=== PATIENT | male | born 1970 | race Two or more races ===

== ENCOUNTER 2019-07-14 15:53 | Outpatient (CLI) | payer OTHER | END 2019-07-14 16:04 | disposition home or self-care (01) | LOC: RAD 15:53 | DX: I10 Essential (primary) hypertension (principal) ==

== ENCOUNTER → 2019-07-22 15:04 | Outpatient (CLI) | payer OTHER | END | disposition home or self-care (01) | LOC: LAB 15:04 | DX: D68.8 Other specified coagulation defects (principal) ==

== ENCOUNTER 2019-07-23 15:00 | Outpatient (CLI) | payer OTHER | END 2019-07-23 15:08 | disposition home or self-care (01) | LOC: LAB 15:00 | DX: N30.00 Acute cystitis without hematuria (principal) ==

== ENCOUNTER 2019-10-08 10:46 | Outpatient (CLI) | payer OTHER | END 2019-10-08 15:00 | disposition home or self-care (01) | LOC: LAB 10:46 | DX: N30.00 Acute cystitis without hematuria (principal) ==

== ENCOUNTER 2019-10-12 08:03 | Outpatient (CLI) | payer OTHER | END 2019-10-12 09:00 | disposition home or self-care (01) | LOC: RX STUDY 08:03 | DX: K57.90 Diverticulosis of intestine, part unspecified, without perforation or abscess without bleeding (principal) ==

== ENCOUNTER 2019-10-19 10:01 | Outpatient (CLI) | payer OTHER | END 2019-10-19 10:10 | disposition home or self-care (01) | LOC: LAB 10:01 | DX: N30.00 Acute cystitis without hematuria (principal) ==

== ENCOUNTER → 2019-11-11 10:27 | Outpatient (CLI) | payer OTHER | END | disposition home or self-care (01) | LOC: LAB 10:27 | DX: N30.00 Acute cystitis without hematuria (principal) ==

== ENCOUNTER → 2020-03-19 08:51 | Outpatient (CLI) | payer OTHER | END | disposition home or self-care (01) | LOC: LAB 08:51 | PROVIDERS: ATTEND Urology | DX: N30.00 Acute cystitis without hematuria (principal) ==

== ENCOUNTER 2021-03-14 07:51 | Outpatient (CLI) | payer OTHER | END 2021-03-14 07:54 | disposition home or self-care (01) | LOC: LAB 07:51 | PROVIDERS: ATTEND Urology | DX: R97.21 Rising PSA following treatment for malignant neoplasm of prostate (principal); N30.00 Acute cystitis without hematuria ==

== ENCOUNTER 2021-05-24 07:09 | Outpatient (CLI) | payer OTHER | END 2021-05-24 07:23 | disposition home or self-care (01) | LOC: TOM 07:09 | PROVIDERS: ATTEND Internal Medicine Gastroenterology | DX: K57.90 Diverticulosis of intestine, part unspecified, without perforation or abscess without bleeding (principal); K44.9 Diaphragmatic hernia without obstruction or gangrene; Q61.01 Congenital single renal cyst; K59.09 Other constipation; Z12.11 Encounter for screening for malignant neoplasm of colon; D12.7 Benign neoplasm of rectosigmoid junction; G20 Parkinson's disease ==

== ENCOUNTER 2021-05-29 15:41 | Outpatient (CLI) | payer OTHER | END 2021-05-29 15:52 | disposition home or self-care (01) | LOC: LAB 15:41 | PROVIDERS: ATTEND Urology | DX: R97.20 Elevated prostate specific antigen [PSA] (principal) ==

== ENCOUNTER → 2021-06-09 | Outpatient (CLI) | payer OTHER ==
[~2021-06-09] MED LIST: CARBIDOPA-LEVO1 EA10; CARBIDOPA-LEVO1 EA13; CEFUROXIME500 MG; LOSARTAN POTASS50 MG; NEUPRO1 EAC4; RASAGILINE MESYL1 MG; TAMSULOSIN HCL0.4 MG
== END | disposition home or self-care (01) ==
LOC: SONOGRAMA 07:25
PROVIDERS: ATTEND Urology
DX: D29.1 Benign neoplasm of prostate (principal); R97.20 Elevated prostate specific antigen [PSA]

== ENCOUNTER 2021-06-12 07:16 | Inpatient (IN) | payer OTHER ==
[~2021-06-12] VITALS: Ht 182.9 cm; Wt 72.6 kg
[2021-06-12] MEDS ORDERED: CARBIDOPA-LEVO1 EA13 (07:36)
[2021-06-12] MEDS ORDERED: RASAGILINE MESYL1 MG (07:37)
[2021-06-12] MEDS ORDERED: NEUPRO1 EAC4 (07:37)
[2021-06-12] MEDS ORDERED: CARBIDOPA-LEVO1 EA10 (07:37)
[2021-06-12] MEDS ORDERED: TAMSULOSIN HCL0.4 MG (07:38)
[2021-06-12] MEDS ORDERED: LOSARTAN POTASS50 MG (07:38)
[2021-06-12] MEDS ORDERED: CEFUROXIME500 MG (07:39)
== END 2021-06-15 13:22 | disposition home or self-care (01) | DRG 690 ==
LOC: ER 07:16 → SURH 14:54
PROVIDERS: ADMIT Urology; ATTEND Urology
DX: N39.0 Urinary tract infection, site not specified (principal); Z20.822 Contact with and (suspected) exposure to COVID-19

== ENCOUNTER → 2021-07-14 09:53 | Outpatient (CLI) | payer OTHER ==
[~2021-07-14 09:53] MED LIST changes: +[UNRECOGNIZED DRUG - OTHER] PO
== END | disposition home or self-care (01) ==
LOC: LAB 09:53
PROVIDERS: ATTEND Urology
DX: N30.00 Acute cystitis without hematuria (principal); I11.9 Hypertensive heart disease without heart failure

== ENCOUNTER 2021-07-24 10:45 | Inpatient (IN) | payer OTHER ==
[~2021-07-24 10:45] MED LIST changes: -[UNRECOGNIZED DRUG - OTHER] PO
[2021-07-24] MEDS ORDERED: [UNRECOGNIZED DRUG - OTHER] PO (13:59)
== END 2021-07-27 13:57 | disposition home or self-care (01) | DRG 714 ==
LOC: SURH 07-26 07:00 → O/R 07-26 11:20 → SURH 07-26 11:20
PROVIDERS: ADMIT Urology; ATTEND Urology
PROC: 0VT08ZZ Resection of Prostate, Via Natural or Artificial Opening Endoscopic (ICD-10-PCS; principal; 2021-07-26 07:00)
DX: N40.1 Benign prostatic hyperplasia with lower urinary tract symptoms (principal); R33.8 Other retention of urine

== ENCOUNTER 2021-08-05 08:15 | Outpatient (CLI) | payer OTHER ==
[~2021-08-05 08:15] MED LIST changes: +[UNRECOGNIZED DRUG - OTHER] PO
== END 2021-08-05 08:19 | disposition home or self-care (01) ==
LOC: LAB 08:15
PROVIDERS: ATTEND Urology
DX: N30.00 Acute cystitis without hematuria (principal)

== ENCOUNTER 2021-08-21 06:30 | Outpatient (CLI) | payer OTHER | END 2021-08-21 06:38 | disposition home or self-care (01) | LOC: LAB 06:30 | PROVIDERS: ATTEND Urology | DX: N30.00 Acute cystitis without hematuria (principal) ==

== ENCOUNTER 2021-08-23 12:35 | Inpatient (IN) | payer OTHER ==
[~2021-08-23] VITALS: Ht 182.9 cm; Wt 74.8 kg
--- NOTE | 2021-08-23 13:00 | NUR ---
SE RECIBE PACIENTE ALERTA Y ORIENTADO X3 EN AMBULANCIA QUIEN REFIERE QUE LA SEMANA PASADA LE OPERARON DE LA PROSTATA Y QUE DESDE EL LUNES COMENZO A BELKYS SANGRADO EN LA ORINA ACOMPANDADO DE COAGULOS, EN EL CARINE DE HIRAL LA ORINA FUE NORMAL Y HOY COMENZO [place]. SE MONITOREAN S/V YSE UBICA PACIENTE.
--- NOTE | 2021-08-23 13:46 | NUR ---
SE RECIBE PTE MASCULINO DE 51 YRS ALERTA CONCIENTE Y TRANQUILA EN COMPANIA DEF FAMILIAR. PTE ES EVALUADA POR LA NAYANA, FRANCOIS POR HEMATURIA. SE LE BRIANA MUESTRAS DE JEN Y MUESTRA DE ORINA. SE MANTIENE BAJO OBSERVACION.
--- NOTE | 2021-08-23 16:01 | NUR ---
PACIENTE LE COLOCA TRYWAY POR ORDEN MEDICA Y TIENE PENDIENTE ORDEN DE CONSULTA CON UROLOGO. SE MANTIENE GONSALO OBSERVACION.
--- NOTE | 2021-08-23 17:15 | NUR ---
SE ORIENTA A PTE SOBRE PROCESO DE REALIZAR MUESTRA DE COVID MOLECULAR A PTE EL MISMO REFIERE ENTENDER INF GIBSON POR RN SMALL SE LLEVA PERSONALMENTE MUESTRA DE LABORATORIO. DR. PETERS REFIERE QUE ADMITIRA A PTE PARA LLEVAR EL MISMO A OR.
--- NOTE | 2021-08-23 17:40 | NUR ---
PACIENTE ES TRASLADADO POR DR. PETERS A STIVEN DE OPERACIONES DE MANERA DIRECTA LUEGO DE EJECUTA ORDENES DE ADMISIONES.
--- NOTE | 2021-08-23 18:00 | NUR ---
PACIENTE TRASLADADO A STIVEN DE OOPERACIONES POR DR. LEGGETT , EL CUAL REFIERE TRASLADARA A PACIENTE LUEGO DE COLOCAR ORDENES DE ADMISION. PACIENTE CON ALERTA, CONCIENTE Y ORIENTAD X3 Y SIGNOS VITALES ESTABLES.
[2021-08-24] MEDS ORDERED: METHENAMINE HIPP1 GM (07:59)
[2021-08-24] MEDS ORDERED: TUMS ULTRA400 MG (07:59)
[2021-08-24] MEDS ORDERED: ALEVE220 MG (07:59)
[2021-08-24] MEDS ORDERED: INTESTINEX680 M1 (07:59)
[2021-08-24] MEDS ORDERED: FINASTERIDE5 MG (07:59)
[2021-08-24] MEDS ORDERED: VITAMIN D325 MC2 (08:00)
[2021-08-24] MEDS ORDERED: NEUPRO1 EAC4 (08:00)
== END 2021-08-25 11:06 | disposition home or self-care (01) | DRG 690 ==
LOC: ER 12:35 → O/R 18:30 → SEC-K 18:30 → O/R 19:06 → SURG 20:31
PROVIDERS: ADMIT Urology; ATTEND Urology
PROC: 0T9B80Z Drainage of Bladder with Drainage Device, Via Natural or Artificial Opening Endoscopic (ICD-10-PCS; principal; 2021-08-23 20:15)
DX: N39.0 Urinary tract infection, site not specified (principal); R33.8 Other retention of urine; N31.2 Flaccid neuropathic bladder, not elsewhere classified; G20 Parkinson's disease; Z20.822 Contact with and (suspected) exposure to COVID-19; I10 Essential (primary) hypertension